=== PATIENT | female | born 1940 | race Caucasian/White ===

== ENCOUNTER 2020-07-28 12:01 | Emergency (ER) | payer OTHER, MEDICARE ==
[2020-07-28] MEDS ORDERED: LEVALBUTEROL 1.25 MG/3 ML NEB ONE (15:40)
[2020-07-28] MEDS ORDERED: dexAMETHasone 10 MG/ML VIAL ONE (15:40)
--- NOTE | 2020-07-28 15:47 | RAD REPORT ---
EXAM DESCRIPTION: Ramon Single View07/28/2020 3:19 pm CLINICAL HISTORY: sob COMPARISON: none FINDINGS: The lungs appear clear of acute infiltrate. The heart is mildly to moderately enlarged IMPRESSION: No acute abnormalities displayed
[2020-07-28 15:52] LABS: Absolute Lymphocytes (CBC) 1.7 K/uL (0.7-4.9); Basophils % 0.9 % (0-1.3); Lymphocytes % 22.7 % (15.3-44.8); MPV 7.8 fL (7.6-11.3); RBC Red Blood Cell Count 3.97 M/uL (3.86-4.86)
[2020-07-28 15:56] LABS: Protime INR 1.1
[2020-07-28] MEDS ORDERED: ACETAMINOPHEN 325 MG TABLET ONE (16:07)
[2020-07-28 16:11] LABS: ALT/SGPT 14 U/L (12-78); AST/SGOT 7 U/L (15-37); Albumin 3.4 g/dL (3.4-5.0); Alkaline Phosphatase 70 U/L (45-117); BUN Blood Urea Nitrogen 18 mg/dL (7-18); Bicarbonate 28 mmol/L (21-32); Bilirubin Direct 0.2 mg/dL (0-0.2); Bilirubin Total 0.6 mg/dL (0.2-1.0); Glucose Level 97 mg/dL (74-106); Magnesium 1.8 mg/dL (1.8-2.4); NT PRO-BNP 8248 pg/mL (<450); Potassium 3.7 mmol/L (3.5-5.1); Sodium Level 143 mmol/L (136-145); Troponin (Emerg Dept Use Only) < 0.02 ng/mL (0.0-0.045)
[2020-07-28] MEDS ORDERED: FUROSEMIDE 100 MG/10 ML VIAL IV ONE (18:16)
--- NOTE | 2020-07-28 18:49 | ER ---
Nurse's Notes [facility] Name: Harriet Sosa Age: 80 yrs Sex: Female : 1940 Arrival Date: 07/28/2020 Time: 12:02 Bed 30 Private MD: Diagnosis: Heart failure, unspecified Presentation: 07/28 12:35 Chief complaint: Patient states: "I have been feeling short of breath for a couple of jd3 days now. i have had both my COVID shorts.". Coronavirus screen: At this time, the client does not indicate any symptoms associated with coronavirus-19. Ebola Screen: Patient negative for fever greater than or equal to 101.5 degrees Fahrenheit, and additional compatible Ebola Virus Disease symptoms. Initial Sepsis Screen: Does the patient meet any 2 criteria? No. Patient's initial sepsis screen is negative. Does the patient have a suspected source of infection? No. Patient's initial sepsis screen is negative. Risk Assessment: Do you want to hurt yourself or someone else? Patient reports no desire to harm self or others. Onset of symptoms was July 25, 2020. 12:35 Method Of Arrival: Wheelchair jd3 12:35 Acuity: FALGUNI 3 jd3 Historical: - Allergies: 12:41 No Known Allergies; jd3 - Home Meds: 12:41 Metoprolol Tartrate Oral [Active]; Fluoxetine Oral [Active]; Bumetanide Oral [Active]; jd3 Lisinopril Oral [Active]; atorvastatin oral oral [Active]; pantoprazole oral oral [Active]; Isosorbide Mononitrate Oral [Active]; Aspirin Oral [Active]; - PMHx: 12:41 heart problems; Pancreatitis; jd3 - PSHx: 12:41 Cholecystectomy; right hip; jd3 - Immunization history:: Adult Immunizations up to date, Client reports receiving the 2nd dose of the Covid vaccine. - Social history:: Smoking status: Patient denies any tobacco usage or history of. Screenin:41 Abuse screen: Denies threats or abuse. Abuse screen: Denies injuries from another. ph Nutritional screening: No deficits noted. Tuberculosis screening: No symptoms or risk factors identified. Fall Risk None identified. Assessment: 15:00 General: Appears in no apparent distress. comfortable, Behavior is calm, cooperative, ph appropriate for age, Denies fever, feeling ill. Pain: Denies pain. Neuro: Level of Consciousness is awake, alert, obeys commands, Oriented to person, place, time, situation. Cardiovascular: Capillary refill < 3 seconds in bilateral fingers Patient's skin is warm and dry. Respiratory: Reports shortness of breath at rest cough that is Airway is patent Respiratory effort is even, unlabored, Respiratory pattern is regular, symmetrical, Breath sounds with wheezes in mediastinum. GI: No signs and/or symptoms were reported involving the gastrointestinal system. Derm: Skin is intact, is healthy with good turgor, Skin is pink, warm \\T\\ dry. Musculoskeletal: Circulation, motion, and sensation intact. Range of motion: intact in all extremities. 16:13 Reassessment: Patient appears in no apparent distress at this time. Patient and/or ph family updated on plan of care and expected duration. Pain level reassessed. Patient is alert, oriented x 3, equal unlabored respirations, skin warm/dry/pink. Pt reports that she has not taken her bumetanide " in the last few days". 17:09 Reassessment: Patient appears in no apparent distress at this time. Patient and/or ph family updated on plan of care and expected duration. Pain level reassessed. Patient is alert, oriented x 3, equal unlabored respirations, skin warm/dry/pink. 19:19 Reassessment: Patient appears in no apparent distress at this time. Patient and/or ph family updated on plan of care and expected duration. Pain level reassessed. Patient is alert, oriented x 3, equal unlabored respirations, skin warm/dry/pink. Pt d/c home w/ family. Vital Signs: 12:41 BP 168 / 102; Pulse 70; Resp 17 S; Temp 97.7(TE); Pulse Ox 97% on R/A; Weight 84.37 kg jd3 (R); Height 5 ft. 2 in. (157.48 cm) (R); Pain 0/10; 16:15 BP 152 / 98; Pulse 72; Resp 20; Pulse Ox 100% on Nebulizer Mask; ph 17:08 Pulse 74; Resp 18; Pulse Ox 93% on R/A; ph 19:19 BP 152 / 87; Pulse 68; Resp 18; Temp 97.9; Pulse Ox 97% on R/A; ph 12:41 Body Mass Index 34.02 (84.37 kg, 157.48 cm) jd3 ED Course: 12:02 Patient arrived in ED. ds1 12:36 Triage completed. jd3 12:42 Arm band placed on. jd3 14:40 Lauren Juarez, RN is Primary Nurse. ph 14:42 Patient has correct armband on for positive identification. Bed in low position. Call light in reach. 14:47 Tal Cartagena PA is PHCP. [facility] 14:47 Jay Jay Tenorio MD is Attending Physician. m 15:19 XRAY Chest (1 view) In Process Unspecified. EDMS 15:35 Initial lab(s) drawn, by me, sent to lab. EKG done, COVID swab sent to lab. Inserted ph saline lock: 22 gauge in right antecubital area, using aseptic technique. Blood collected. 17:08 No provider procedures requiring assistance completed. ph 19:21 IV discontinued, intact, bleeding controlled, No redness/swelling at site. Pressure ph dressing applied. Administered Medications: 15:45 Drug: Decadron - Dexamethasone 10 mg Route: IVP; Site: right antecubital; ph 17:09 Follow up: Response: No adverse reaction ph 15:51 Drug: Xopenex (levalbuterol) (3) 1.25 mg Route: Inhalation; ph 17:09 Follow up: Response: No adverse reaction ph 15:51 Drug: Tylenol 650 mg Route: PO; ph 17:09 Follow up: Response: No adverse reaction ph 18:15 Drug: Lasix (furosemide) 80 mg Route: IVP; Site: right antecubital; ph 18:47 Follow up: Response: No adverse reaction ph Output: 18:22 Urine: 100ml (Voided); Total: 100ml. ph Outcome: 18:48 Discharge ordered by . m 19:21 Discharged to home via wheelchair, with family. ph 19:21 Condition: good 19:21 Discharge instructions given to patient, Instructed on discharge instructions, follow up and referral plans. medication usage, Demonstrated understanding of instructions, follow-up care, medications, Prescriptions given X 1. 19:22 Patient left the ED. ph Signatures: Dispatcher [employer] EDMS Tal Cartagena PA PA jmm Sanford, Demi ds1 Lauren Juarez RN RN ph John Blanco RN RN jd3 Corrections: (The following items were deleted from the chart) 16:14 16:13 Reassessment: Patient appears in no apparent distress at this time. Patient ph and/or family updated on plan of care and expected duration. Pain level reassessed. Patient is alert, oriented x 3, equal unlabored respirations, skin warm/dry/pink. Pt reports that she has not taken her bumetanide ph
--- NOTE | 2020-07-28 18:49 | EDPHYS ---
Physician Documentation [facility] Name: Harriet Sosa Age: 80 yrs Sex: Female : 1940 Arrival Date: 07/28/2020 Time: 12:02 Bed 30 Private MD: ED Physician Jay Jay Tenorio HPI: 07/28 14:55 This 80 yrs old Female presents to ER via Wheelchair with complaints of jmm Shortness Of Breath, Wheezing. 14:55 The patient has shortness of breath at rest. Onset: The symptoms/episode began/occurred jmm gradually, 2 day(s) ago. Duration: The symptoms are continuous, and are steadily getting worse. The patient's shortness of breath is aggravated by nothing, is alleviated by nothing. Associated signs and symptoms: Pertinent positives: productive cough, Pertinent negatives: dizziness, fever. It is unknown whether or not the patient has had similar symptoms in the past. Historical: - Allergies: 12:41 No Known Allergies; jd3 - Home Meds: 12:41 Metoprolol Tartrate Oral [Active]; Fluoxetine Oral [Active]; Bumetanide Oral [Active]; jd3 Lisinopril Oral [Active]; atorvastatin oral oral [Active]; pantoprazole oral oral [Active]; Isosorbide Mononitrate Oral [Active]; Aspirin Oral [Active]; - PMHx: 12:41 heart problems; Pancreatitis; jd3 - PSHx: 12:41 Cholecystectomy; right hip; jd3 - Immunization history:: Adult Immunizations up to date, Client reports receiving the 2nd dose of the Covid vaccine. - Social history:: Smoking status: Patient denies any tobacco usage or history of. ROS: 14:55 Constitutional: Negative for fever, chills, and weight loss, Cardiovascular: Negative jmm for chest pain, palpitations, and edema. 14:55 Respiratory: Positive for cough, shortness of breath. 14:55 All other systems are negative. Exam: 14:55 Constitutional: This is a well developed, well nourished patient who is awake, alert, jmm and in no acute distress. Head/Face: atraumatic. Eyes: EOMI, no conjunctival erythema appreciated ENT: Moist Mucus Membranes Neck: Trachea midline, Supple Chest/axilla: Normal chest wall appearance and motion. Cardiovascular: Regular rate and rhythm. No edema appreciated 14:55 Abdomen/GI: Non distended, soft Back: Normal ROM Skin: General appearance color normal MS/ Extremity: Moves all extremities, no obvious deformities appreciated, no edema noted to the lower extremities Neuro: Awake and alert, normal gait Psych: Behavior is normal, Mood is normal, Patient is cooperative and pleasant 14:55 Respiratory: the patient does not display signs of respiratory distress, Respirations: normal, Breath sounds: wheezing: that is mild, is heard in the left posterior upper lobe. Vital Signs: 12:41 BP 168 / 102; Pulse 70; Resp 17 S; Temp 97.7(TE); Pulse Ox 97% on R/A; Weight 84.37 kg jd3 (R); Height 5 ft. 2 in. (157.48 cm) (R); Pain 0/10; 16:15 BP 152 / 98; Pulse 72; Resp 20; Pulse Ox 100% on Nebulizer Mask; ph 17:08 Pulse 74; Resp 18; Pulse Ox 93% on R/A; ph 19:19 BP 152 / 87; Pulse 68; Resp 18; Temp 97.9; Pulse Ox 97% on R/A; ph 12:41 Body Mass Index 34.02 (84.37 kg, 157.48 cm) jd3 MDM: 14:55 Patient medically screened. [facility] 18:45 Data reviewed: vital signs, nurses notes. Counseling: I had a detailed discussion with trent the patient and/or guardian regarding: the historical points, exam findings, and any diagnostic results supporting the discharge/admit diagnosis, lab results, radiology results, the need for outpatient follow up, to return to the emergency department if symptoms worsen or persist or if there are any questions or concerns that arise at home. ED course: Patient is alert and non toxic in appearance in the ED. No signs of resp distress. patient is advised to follow up with pcp. Most likely heart failure. Patient states taking her bumex for the trip back to [place]. Patient advised to continue taking medication. Patient is otherwise given strict return precautions. Patient understood and agrees with the plan of care. . 07/28 14:55 Order name: Basic Metabolic Panel [facility] 07/28 14:55 Order name: CBC with Diff [facility] 07/28 14:55 Order name: LFT's; Complete Time: 16:44 [facility] 07/28 14:55 Order name: Magnesium; Complete Time: 16:44 jmm 07/28 14:55 Order name: NT PRO-BNP; Complete Time: 16:44 jmm 07/28 14:55 Order name: PT-INR; Complete Time: 16:02 m 07/28 14:55 Order name: Troponin (emerg Dept Use Only); Complete Time: 16:44 jmm 07/28 14:55 Order name: XRAY Chest (1 view); Complete Time: 15:49 jmm 07/28 14:56 Order name: Basic Metabolic Panel; Complete Time: 16:44 EDMS 07/28 14:56 Order name: CBC with Automated Diff; Complete Time: 15:55 EDMS 07/28 16:40 Order name: SARS-COV-2 RT PCR; Complete Time: 16:44 EDMS 07/28 14:55 Order name: EKG; Complete Time: 14:56 jmm 07/28 14:55 Order name: Cardiac monitoring; Complete Time: 15:19 [facility] 07/28 14:55 Order name: EKG - Nurse/Tech; Complete Time: 15:26 m 07/28 14:55 Order name: IV Saline Lock; Complete Time: 15:52 jmm 07/28 14:55 Order name: Labs collected and sent; Complete Time: 15:52 m 07/28 14:55 Order name: O2 Per Protocol; Complete Time: 15:19 jmm 07/28 14:55 Order name: O2 Sat Monitoring; Complete Time: 15:20 jmm Administered Medications: 15:45 Drug: Decadron - Dexamethasone 10 mg Route: IVP; Site: right antecubital; ph 17:09 Follow up: Response: No adverse reaction ph 15:51 Drug: Xopenex (levalbuterol) (3) 1.25 mg Route: Inhalation; ph 17:09 Follow up: Response: No adverse reaction ph 15:51 Drug: Tylenol 650 mg Route: PO; ph 17:09 Follow up: Response: No adverse reaction ph 18:15 Drug: Lasix (furosemide) 80 mg Route: IVP; Site: right antecubital; ph 18:47 Follow up: Response: No adverse reaction ph Disposition: 07/29 08:07 Co-signature as Attending Physician, Jay Jay Tenorio MD I agree with the assessment and kdr plan of care. Disposition: 07/28/20 18:48 Discharged to Home. Impression: Heart failure, unspecified. - Condition is Stable. - Discharge Instructions: Heart Failure. - Prescriptions for Albuterol Sulfate 90 mcg/actuation - inhale 1-2 puff by INHALATION route every 4-6 hours; 1 Inhaler. - Medication Reconciliation Form, Thank You Letter, Antibiotic Education, Prescription Opioid Use form. - Follow up: Private Physician; When: 2 - 3 days; Reason: Recheck today's complaints, Continuance of care, Re-evaluation by your physician. Signatures: Dispatcher [employer] EDDC Jay Jay Tenorio MD MD kdr Mickail, Joel, PA PA jmm Hall, Patricia RN RN John Weber RN RN jd3 Corrections: (The following items were deleted from the chart) 07/28 15:49 15:11 CORONAVIRUS+MR.LAB.BRZ ordered. [facility] 19:22 18:48 07/28/2020 18:48 Discharged to Home. Impression: Heart failure, unspecified. ph Condition is Stable. Forms are Medication Reconciliation Form, Thank You Letter, Antibiotic Education, Prescription Opioid Use. Follow up: Private Physician; When: 2 - 3 days; Reason: Recheck today's complaints, Continuance of care, Re-evaluation by your physician. trent
[2020-07-28 20:00] VITALS: BP 152/87; TEMP 97.9; O2SAT 97
== END 2020-07-28 19:22 | disposition home or self-care (01) ==
LOC: ER 12:01
DX: I50.9 Heart failure, unspecified (principal); Z20.822 Contact with and (suspected) exposure to COVID-19
CPT/HCPCS: 85025; 80048; 36415; 83735; 85610; 80076; 84484; 83880; 71045; 96375; 96374; 99284; U0003; J1100; 93005